=== PATIENT | female | born 1975 | race Caucasian/White ===

== ENCOUNTER → 2017-06-18 | Outpatient (CLI) | payer BC ==
[~2017-06-18] MED LIST: AMLODIPINE BESYL5 MG PO; ASPIRIN81 MG PO; CYMBALTA PO; ENBREL50 MG/ML; HUMIRA; HUMIRA40 MG/0.1 SQ; LOPID600 MG PO; LORTAB 7.5-5001 TAB PO; LOTENSIN HCT 101 TAB PO; NORCO 5/325 TAB1 TAB PO; NORVASC PO; PROTONIX PO
--- NOTE | ~2017-06-18 | CT98 ---
[facility] A Service of [facility] RADIOLOGY TEXT RESULTS PATIENT: CAROLINA HEAD LOCATION: [facility] : 71 UNIT #: [id number] AGE: [address]: ULISES LA SEX: F ORDER DR: [id number] [facility]. [place], [place] [address] [id number] O MR#: [id number] Acc #: [id number] NAME: CAROLINA HEAD : 1975 SEX: F STUDY DATE/TIME: 06/18/2017 11:36 UNIT: [facility] ROOM: STUDY DESCRIPTION: CT Lumbar Spine Wo Cont Attending Physician: Jethro Burris Referring Physician: Jethro Burris Ordering Physician: Physician Non-Staff Primary Care Physician: Chely Carter M.D. MEDICAL IMAGING REPORT This report is preliminary unless electronic signature is present EXAM Lumbar spine CT no contrast, 06/18/2017 PROCEDURE Axial unenhanced lumbar CT with multiplanar reformats. This CT exam was performed with one or more of the following radiation dose reduction techniques: automatic exposure control, adjustment of mA and/or kV according to patient size, and iterative reconstruction. COMPARISON CT of the abdomen and pelvis, 03/02/2016 HISTORY Low back pain for about one year. FINDINGS Alignment is normal. Spinal stimulator leads enter the spinal canal posteriorly at the 12-1 level and extends cephalad. There is no fracture. There is no bone erosion or destruction. At 1-2, 2-3 and 3-4, there is no canal or foraminal compromise. At 4-5, there is a disc bulge and facet arthropathy, and probably mild canal stenosis and mild right and mild or mild to moderate left foraminal stenosis. At 5-1, there is facet arthropathy. There is no canal stenosis, and there is mild right and left foraminal stenosis. IMPRESSION 1. Mild lower lumbar degenerative change consisting primarily of facet [facility] A Service of [facility] RADIOLOGY TEXT RESULTS PATIENT: CAROLINA HEAD [id number] 71 UNIT #: [id number] AGE: [address]: ULISES LA SEX: F ORDER DR: arthropathy at 4-5 and 5-1. No acute abnormality. 2. Spinal stimulator leads enter the spinal canal posteriorly at the 12-1 level and extends cephalad. Otherwise negative. Dictated by... Dane Jacques M.D. THIS IS AN ELECTRONICALLY VERIFIED REPORT Dane Jacques M.D. at 06/19/2017 2:51 PM LYDIA/lillian TD: 06/19/2017 14:41 JOB #: [id number] MEDICAL IMAGING REPORT Page 1 of 1 COPY
== END | disposition home or self-care (01) ==
LOC: CCAT 11:04
DX: M51.36 Other intervertebral disc degeneration, lumbar region (principal); M47.896 Other spondylosis, lumbar region; M46.96 Unspecified inflammatory spondylopathy, lumbar region; Z97.8 Presence of other specified devices
CPT/HCPCS: 72131